=== PATIENT | female | born 1945 | race Two or more races ===

== ENCOUNTER 2023-02-16 14:41 | Emergency (ER) | payer OTHER ==
[~2023-02-16] VITALS: Ht 160 cm; Wt 80.3 kg
[~2023-02-16 14:41] MED LIST: ALTACE10 MG PO; AMARYL; ASA81 MG; GLYBURID-METFOR1 TA3 PO; HYDROCHLOROTHIAZIDE; ISORDIL5 MG; LEVSIN/SL0.125 MG SL; PEPCID40 MG PO
[2023-02-16] MEDS ORDERED: COZAAR25 MG (15:33)
[2023-02-16] MEDS ORDERED: SYNJARDY 12.5-1 EACH (15:34)
[2023-02-16] MEDS ORDERED: PREVACID15 M1 (15:34)
[2023-02-16] MEDS ORDERED: CRESTOR20 MG (15:34)
[2023-02-16 16:51] LABS: HEMOGLOBIN 13.4 g/dL (12.0-15.00); MEAN CORPUSCULAR HEMOGLOBIN 28.3 pg (27.00-32.0); MEAN CORPUSCULAR HGB CONC 32.5 g/dl (32.0-36.0); PLATELET COUNT 186 K/uL (150-450); RED BLOOD COUNT 4.72 M/uL (4.00-6.00); RED CELL DISTRIBUTION WIDTH 14.9 % (11.5-14.5)
[2023-02-16 17:18] LABS: ALBUMIN 3.9 gm/dL (3.4-5.0); BILIRUBIN TOTAL 0.74 mg/dL (0.3-1.2); CALCIUM 9.1 mg/dL (8.5-10.1); CREATININE SERUM 0.51 mg/dL (0.55-1.02); GFR 117.56; GLOBULINA 4.2 G/DL (2.4-3.5); POTASSIUM 4.01 mEq/L (3.5-5.1); TOTAL PROTEIN 8.1 gm/dL (6.4-8.2)
[2023-02-16] MEDS ORDERED: CIPRO500 MG PO (19:40)
[2023-02-16] MEDS ORDERED: OMEPRAZOLE40 MG PO (19:40)
[2023-02-16] MEDS ORDERED: METRONIDAZOLE500 MG PO (19:40)
[2023-02-16] MEDS ORDERED: ZOFRAN8 MG PO (19:40)
[2023-02-16] MEDS ORDERED: LEVSIN/SL0.125 MG SL (19:40)
== END 2023-02-16 19:47 | disposition home or self-care (01) ==
LOC: ER 14:41
PROVIDERS: General Practice
DX: K57.92 Diverticulitis of intestine, part unspecified, without perforation or abscess without bleeding (principal); R10.31 Right lower quadrant pain; I25.10 Atherosclerotic heart disease of native coronary artery without angina pectoris; I10 Essential (primary) hypertension; E11.9 Type 2 diabetes mellitus without complications; Z79.84 Long term (current) use of oral hypoglycemic drugs; Z20.822 Contact with and (suspected) exposure to COVID-19
CPT/HCPCS: 36415; 74176; 96365; 96366; 99284; J1885; J2405; J2543; J3490; J7030

== ENCOUNTER 2024-08-08 06:43 | Outpatient (CLI) | payer OTHER ==
[~2024-08-08 06:43] MED LIST changes: +CIPRO500 MG PO; +COZAAR25 MG; +CRESTOR20 MG; +METRONIDAZOLE500 MG PO; +OMEPRAZOLE40 MG PO; +PREVACID15 M1; +SYNJARDY 12.5-1 EACH; +ZOFRAN8 MG PO
== END 2024-08-09 07:00 | disposition home or self-care (01) ==
LOC: MRI 06:43
DX: R10.31 Right lower quadrant pain (principal); R14.3 Flatulence
CPT/HCPCS: 74185; Q9965